=== PATIENT | male | born 1955 | race Asian ===

== ENCOUNTER 2018-10-03 13:26 | Outpatient (CLI) | payer BC ==
[~2018-10-03] VITALS: Ht 170.2 cm; Wt 68.9 kg
== END 2018-10-03 13:47 | disposition home or self-care (01) ==
LOC: PREOP 13:26
PROVIDERS: ATTEND Surgery
DX: Z01.818 Encounter for other preprocedural examination (principal)

== ENCOUNTER 2018-10-08 12:34 | Day surgery (SDC) | payer BC ==
[~2018-10-08] VITALS: Ht 170.2 cm; Wt 68.9 kg
[2018-10-08] MEDS ORDERED: LACTATED RINGERS 1,000 ML IV ONE (12:44)
[2018-10-08 12:55] VITALS: BP 111/77
[2018-10-08] MEDS ORDERED: PROPOFOL INJECTION 50 ML IV ONE (12:56)
[2018-10-08] MEDS ORDERED: MIDAZOLAM 2 MG/2 ML (VERSED) VIAL ONE (12:56)
--- NOTE | 2018-10-08 13:12 | Progress Note-Pre Operative ---
Pre-Operative Progress Note H&P Reviewed The H&P was reviewed, patient examined and no changes noted. Date Seen by Provider: Oct 08, 2018 Time Seen by Provider: 13:11 Date H&P Reviewed: Oct 08, 2018 Time H&P Reviewed: 13:11 Pre-Operative Diagnosis: screening colonoscopy DOROTA AL DO Oct 08, 2018 13:12
[2018-10-08] MEDS ORDERED: LACTATED RINGERS 1,000 ML IV SCH (13:30)
--- NOTE | 2018-10-08 13:38 | Progress Note-Post Operative ---
Post-Operative Progess Note Surgeon (s)/Hospital Director (s) Surgeon DOROTA AL DO Hospital Director: na Pre-Operative Diagnosis screening colonoscopy Post-Operative Diagnosis normal colon Procedure & Operative Findings Date of Procedure 10/08/18 Procedure Performed/Findings colonoscopy Anesthesia Type per managed services consultant Estimated Blood Loss Estimated blood loss (mL): na Specimens/Packing Specimens Removed na DOROTA AL DO Oct 08, 2018 13:38
--- NOTE | 2018-10-08 13:39 | Discharge Inst-Simple/Standard ---
Discharge Inst-Standard Patient Instructions/Follow Up Plan of Care/Instructions/FU: repeat colonoscopy in 10 years or if family history colon cancer 5 years. any issues before that be seen at that time. Activity as Tolerated: Yes Discharge Diet: Regular Diet DOROTA AL DO Oct 08, 2018 13:39
[2018-10-08 13:55] VITALS: BP 93/57
[2018-10-08 14:15] VITALS: BP 100/67
--- NOTE | 2018-10-08 14:19 | Anesthesia-General Post-Op ---
MAC Patient Condition Mental Status/LOC: Same as Preop Cardiovascular: Satisfactory Nausea/Vomiting: Absent Respiratory: Satisfactory Pain: Controlled Complications: Absent Post Op Complications Complications None Follow Up Care/Instructions Patient Instructions None needed. Anesthesiology Discharge Order Discharge Order Patient is doing well, no complaints, stable vital signs, no apparent adverse anesthesia problems. No complications reported per nursing. CLEMENTINE MORRIS CRNA Oct 08, 2018 14:19
[2018-10-08 14:23] VITALS: BP 100/67
--- NOTE | 2018-10-08 20:59 | OPERATIVE REPORT ---
DATE OF SERVICE: 10/08/2018 PREOPERATIVE DIAGNOSIS: Screening colonoscopy. POSTOPERATIVE DIAGNOSIS: Screening colonoscopy. PROCEDURE: Colonoscopy. SURGEON: Dorota Saha DO ANESTHESIA: Per MANAGER PROGRAM MANAGEMENT. ESTIMATED BLOOD LOSS: None. COMPLICATIONS: None. INDICATIONS: The patient is a 63-year-old male due for screening colonoscopy. He understands risks and benefits of procedure and wished to proceed with procedure. Consent was signed on the chart. DESCRIPTION OF PROCEDURE: The patient was taken to the endoscopy suite, placed in left lateral recumbent position. Timeout was performed. A digital rectal exam was performed. There were no palpable polyps, masses or ulcerations. The scope was inserted in the rectum and advanced all the way to the cecum with minimal difficulty. Prep was adequate. The scope was then slowly retracted back. There were no polyps, masses or ulcerations in the cecum, ascending, transverse, descending and sigmoid colon. Once in the rectum, scope was also retroflexed noting no other pathology. Scope was returned to its normal position, slowly withdrawn until completely removed. The patient tolerated procedure well without complications, taken to recovery room in stable condition. RECOMMENDATIONS: The patient will need repeat colonoscopy in 10 years. If he has any issues before that, he should be seen at that time. If he has any family history of colon cancer, he should be reevaluated in 5 years. Job ID: [id number] DocumentID: [id number] Dictated Date: 10/08/2018 13:37:23 Voice Writing Reporter Date: 10/08/2018 20:59:02 Dictated By: DOROTA SAHA DO
== END 2018-10-08 14:24 | disposition home or self-care (01) ==
LOC: ENDO 12:34
PROVIDERS: ATTEND Surgery
DX: Z12.11 Encounter for screening for malignant neoplasm of colon (principal)